=== PATIENT | female | born 1960 | race Caucasian/White ===

== ENCOUNTER 2018-09-01 19:47 | Emergency (ER) | payer OTHER ==
[~2018-09-01] VITALS: Wt 51.8 kg
--- NOTE | 2018-09-02 02:15 | ERD ---
ER Documentation Chief Complaint Chief Complaint states wants xray/cd for right arm, diagnosed with fx 6 days ago HPI Is a 58-year-old female who states she wants an x-ray of her right wrist she was diagnosed with fracture 6 days ago at an outside facility and states she needs another x-ray because it was requested by her orthopedic doctor which she has an appointment with tomorrow. She is in a splint already. No numbness or tingling. No new injury or trauma. ROS All systems reviewed and are negative except as per history of present illness. Allergies Allergies: Coded Allergies: No Known Drug Allergies (Verified Allergy, Unknown, 09/01/18) PMhx/Soc Medical and Surgical Hx: pt denies Medical Hx, pt denies Surgical Hx Hx Alcohol Use: No Hx Substance Use: No Hx Tobacco Use: No Smoking Status: Never smoker FmHx Family History: No diabetes Physical Exam Vitals Vital Signs Date Temp Pulse Resp B/P (MAP) Pulse Ox O2 O2 Flow FiO2 Time Delivery Rate 09/01/18 98.5 80 18 142/66 98 20:23 (91) Physical Exam Const: No acute distress Head: Atraumatic Eyes: Normal Conjunctiva ENT: Normal External Ears, Nose and Mouth. Neck: Full range of motion. No meningismus. Resp: Clear to auscultation bilaterally Cardio: Regular rate and rhythm, no murmurs rue: in volar splint, capillary refill less than 2 seconds, sensation light touch is intact Procedures/MDM This 58-year-old female is here requesting a x-ray which was ordered. She is already in a splint. Fracture is seen on the x-ray she was given copy of the CD. Patient counseled regarding my diagnostic impression and care plan. Prior to discharge all questions answered. Pt agrees with treatment plan and understands strict return precautions. Pt is instructed to follow up with primary care provider within 24-48 hours. Precautionary instructions provided including instructions to return to the ER if not improving or for any worsening or changing symptoms or concerns. Departure Diagnosis: Primary Impression: Wrist fracture Condition: Stable Patient Instructions: Fracture, Wrist [General] Additional Instructions: Llame al doctor MAANA y jose xavier LIBIA PARA DENTRO DE 1-2 STEVENSON.Dgale a la secretaria que nosotros le instruimos hacer esta libia.Avise o llame si baez condicin se empeora antes de la libia. Regresa aqui si peor o no mejor. BANDAR ALMARAZ PA-C Sep 02, 2018 02:15
[2018-09-02 02:47] VITALS: BP 126/73; PULSE 81; RESP 18
== END 2018-09-02 02:50 | disposition home or self-care (01) ==
LOC: FTE 19:47
DX: S62.101A Fracture of unspecified carpal bone, right wrist, initial encounter for closed fracture (principal); X58.XXXA Exposure to other specified factors, initial encounter; Y92.9 Unspecified place or not applicable
CPT/HCPCS: 73110; Z7502